=== PATIENT | female | born 1980 | race Caucasian/White ===

== ENCOUNTER → 2016-11-22 | Outpatient (CLI) | payer OTHER | END | disposition home or self-care (01) | LOC: LAB.O 08:25 | PROVIDERS: ATTEND Surgery | DX: E56.9 Vitamin deficiency, unspecified (principal); R53.83 Other fatigue; R53.81 Other malaise; R12 Heartburn; R06.02 Shortness of breath; R60.9 Edema, unspecified ==

== ENCOUNTER → 2017-02-20 | Outpatient (CLI) | payer OTHER | END | disposition home or self-care (01) | LOC: LAB.O 09:04 | PROVIDERS: ATTEND Surgery | DX: R53.83 Other fatigue (principal); R53.81 Other malaise; R12 Heartburn; R06.02 Shortness of breath; R60.9 Edema, unspecified; J45.909 Unspecified asthma, uncomplicated; F32.9 Major depressive disorder, single episode, unspecified; M25.50 Pain in unspecified joint ==

== ENCOUNTER → 2017-04-27 | Outpatient (CLI) | payer OTHER ==
--- NOTE | 2017-04-29 11:07 | RAD ---
EXAM DESCRIPTION: Hand, right 3 Views CLINICAL HISTORY: 37 years Female, PAIN IN RIGHT HAND COMPARISON: None except for left hand today. FINDINGS: There is no evidence of acute fracture or dislocation or destructive bony lesion. Joint spaces are maintained. Soft tissues are essentially unremarkable. IMPRESSION: Negative right hand Electronically signed by: José Miguel Godinez 04/29/2017 11:06 AM [facility]
--- NOTE | 2017-04-29 11:12 | RAD ---
EXAM DESCRIPTION: Hand, left 3 Views CLINICAL HISTORY: 37 years Female, PAIN COMPARISON: None except for right hand on the same day. FINDINGS: There is no evidence of acute fracture or dislocation or destructive bony lesion. Joint spaces are maintained. Soft tissues are essentially unremarkable. IMPRESSION: Negative left hand. Electronically signed by: José Miguel Godinez 04/29/2017 11:11 AM [facility]
== END | disposition home or self-care (01) ==
LOC: RAD 08:01
PROVIDERS: ATTEND Orthopaedic Surgery
DX: M79.641 Pain in right hand (principal); M79.642 Pain in left hand

== ENCOUNTER 2017-05-09 05:56 | Day surgery (SDC) | payer OTHER ==
[2017-05-09] MEDS ORDERED: SODIUM CHL 0.9% 100ML MINI-BAG 100 ML IVPB ONE (06:08)
[2017-05-09] MEDS ORDERED: LACTATED RINGERS 1,000 ML ONE (06:08)
[2017-05-09] MEDS ORDERED: ceFAZolin SODIUM 1 GM VIAL ONE ×2 (06:08→08:57)
[2017-05-09] MEDS ORDERED: LIDOCAINE 1% 50 ML VIAL INJ ONE (08:57)
[2017-05-09] MEDS ORDERED: BUPIVACAINE 0.25% INJ 30 ML VIAL INJ ONE (08:57)
[2017-05-09] MEDS ORDERED: VANCOMYCIN HCL INJ 1,000 MG VIAL IVPB ONE (08:57)
[2017-05-09] MEDS ORDERED: ceFAZolin SODIUM 1 GM VIAL INJ ONE (09:57)
[2017-05-09] MEDS ORDERED: SODIUM CHLORIDE 0.9% 50 ML VIAL INJ ONE (10:00)
[2017-05-09] MEDS ORDERED: PROPOFOL 200 MG/20 ML VIAL IV ONE (10:00)
[2017-05-09] MEDS ORDERED: ceFAZolin SODIUM 1 GM VIAL IVPB ONE (10:00)
[2017-05-09 10:58] VITALS: BP 108/74; TEMP 96.9; O2SAT 100
--- NOTE | 2017-05-11 08:27 | OP ---
DATE OF PROCEDURE: 05/09/17 PREOPERATIVE DIAGNOSIS: 1. Carpal tunnel syndrome. POSTOPERATIVE DIAGNOSIS: 1. Carpal tunnel syndrome. PROCEDURE: 1. Carpal tunnel release. SURGEON: Tyler Diallo MD. [employer]VERSE WINDER: Dylan Subramanian CST, SA-C. ANESTHESIA: Local with sedation. COMPLICATIONS: None. FINDINGS: Thickening of the transverse carpal ligament. INDICATION: Ms. Bray has a history of symptoms consistent with carpal tunnel syndrome. Because of her longstanding symptoms, she has requested operative intervention. After discussing the risks, benefits and alternatives to that, the patient has given informed consent for carpal tunnel release. PROCEDURE: The patient was brought to the Operating Room and placed in the supine position. Sedation was administered and local anesthetic was injected into the operative area under sterile conditions. After the injection of anesthetic, the arm was sterilely prepped and draped. A longitudinal incision was made directly overlying the transverse carpal ligament and blunt dissection was carried down to the ligament. The transverse carpal ligament was sharply transected along its length and a [place] elevator was used to ensure complete release of the ligament. Once release had been confirmed, the wound was thoroughly irrigated and the wound was closed with Nylon suture. A sterile dressing was placed and the patient was taken to the Day Surgery Unit. POSTOPERATIVE INSTRUCTIONS: The patient has been encouraged to do range of motion of the digits and will followup with us in two days. #[id number] [facility]US[facility]
== END 2017-05-09 10:55 | disposition home or self-care (01) ==
LOC: AMB 05:56
PROVIDERS: ATTEND Orthopaedic Surgery
DX: G56.02 Carpal tunnel syndrome, left upper limb (principal); K21.9 Gastro-esophageal reflux disease without esophagitis; Z98.84 Bariatric surgery status; F32.9 Major depressive disorder, single episode, unspecified; Z79.899 Other long term (current) drug therapy
CPT/HCPCS: 01810; 64721; A4216; J0690; J3370; J3490; J7050; J7120

== ENCOUNTER → 2019-03-03 | Outpatient (CLI) | payer BC ==
--- NOTE | 2019-03-04 10:32 | CT ---
EXAM DESCRIPTION: CT ABDOMEN AND PELVIS WITH CONTRAST CLINICAL HISTORY: DIVERTICULITUS COMPARISON: None Available. TECHNIQUE: CT of the abdomen and pelvis are performed during IV bolus administration of 100 mL of Optiray 320. No oral contrast. FINDINGS: In the lower chest, patchy atelectasis or infiltrate in both lung bases. Heart size is normal. CT abdomen Surgical changes of previous sleeve gastrectomy. Small hiatal hernia is present. Cyst in the spleen measures 6 mm. Otherwise the liver, spleen, pancreas, gallbladder, adrenal glands and kidneys are unremarkable in appearance. No inflammation around the pancreas. No renal stones or hydronephrosis. Thick-walled transverse colon and splenic flexure with mild surrounding inflammatory changes in the fat suggests colitis. No diverticulum in the area to suggest acute diverticulitis. Lesser wall thickening of the distal descending and proximal sigmoid colon. No diverticulum appears inflamed in this area. This could be infectious colitis, inflammatory bowel disease or ischemic colitis. The latter is unusual in a young patient however. Correlate with other studies. No free air or free fluid. CT pelvis Appendix is not seen and may be surgically absent. No inflammation around the cecum or terminal ileum or sigmoid colon. Bladder and distal ureters are negative for stones. Normal enhancement of pelvic vessels. No inguinal or lower pelvic adenopathy. Uterus is normal in size. Small amount of free fluid behind the uterus. Ovaries are normal in size. Fallopian tube contraceptive devices are present bilaterally. Bone window images are negative for fracture or lytic lesion. Coronal and sagittal reformatted images confirm the findings. IMPRESSION: Inflamed and thickened appearance of the distal transverse colon and splenic flexure and proximal sigmoid colon consistent with colitis. See above. This exam was performed according to our departmental dose-optimization program, which includes automated exposure control, adjustment of the mA and/or kV according to patient size and/or use of iterative reconstruction technique. Total DLP equals 1220.24 mGycm. Electronically signed by: Jaspreet Baldwin MD 03/04/2019 10:30 AM CDT
== END ==
LOC: CT 15:16
PROVIDERS: ATTEND Nurse Practitioner Family
DX: K52.89 Other specified noninfective gastroenteritis and colitis (principal)

== ENCOUNTER → 2020-07-14 | Outpatient (CLI) | payer BC ==
--- NOTE | 2020-07-15 12:16 | US ---
EXAM DESCRIPTION: Pelvic,Non-OB: Ultrasound. CLINICAL HISTORY: 40 years Female EXCESSIVE AND FREQUENT MENSTRUATION WITH REGULAR CYCLE. Use of fallopian tube coils for contraception. COMPARISON: None TECHNIQUE: Transcutaneous scanning through the urine filled bladder. Endovaginal scanning. Cheng-scale and Doppler modes. FINDINGS: Uterus 10.1 x 5.2 x 6.2 cm. 170 mL. Endometrium 11.5 mm.. Echogenic device seen within the cavity. Myometrium heterogeneous. Isoechoic mass posterior to the endometrial cavity measuring 3.5 x 3.0 x 2.1 cm. Isoechoic mass on the anterior fundus anterior to the endometrial cavity and posterior to the urinary bladder measuring 3.2 x 2.8 x 1.8 cm. Uterus not retroverted. Cervix not well seen. Cul-de-sac: No fluid.. Right ovary 3.5 x 1.9 x 1.6 cm. 5.5 mL. Normal waveform and color Doppler vascularity. No follicles or cysts. No echogenic contraceptive device; no adnexal mass or free fluid. Left ovary 2.8 x 2.6 x 2.1 cm. 7.9 mL. Normal waveform and color Doppler vascularity. No follicles or cysts. Echogenic contraceptive device in the left adnexa. No adnexal mass or free fluid. IMPRESSION: 1. Right fallopian tube coiled contraceptive device appears to be within the endometrial cavity. Left fallopian tube coil contraceptive device is in the left adnexa. No adnexal mass or fluid. Endovaginal scan may be more sensitive. 2. Normal orientation of the uterus. Endometrial thickening. 2 fibroids. 3. Bilateral ovaries are unremarkable. No free fluid. Electronically signed by: Dylan Velez MD 07/15/2020 12:14 PM [facility]
== END ==
LOC: US 10:07
PROVIDERS: ATTEND Family Medicine
DX: N92.0 Excessive and frequent menstruation with regular cycle (principal); Z97.5 Presence of (intrauterine) contraceptive device; D25.9 Leiomyoma of uterus, unspecified; N85.8 Other specified noninflammatory disorders of uterus